=== PATIENT | male | born 1965 | race Caucasian/White ===

== ENCOUNTER 2017-11-22 13:47 | Emergency (ER) | payer BC ==
[2017-11-22 14:04] VITALS: TEMP 97.6
--- NOTE | 2017-11-22 14:20 | ED.PDOC ---
History of Present Illness - General Chief Complaint: Back Pain or Injury Stated Complaint: back pain Time Seen by Provider: 11/22/17 14:02 Source: patient Exam Limitations: no limitations - History of Present Illness Initial Comments: The patient is a 52-year-old male presenting to the emergency room secondary to pain in his low back with radiation down his left leg to his foot. There is some tingling in the leg. There is no weakness. No rash. The patient has had this flare for about 3-4 days. He has had pain in the area before. He has had to have surgery before. No incontinence. No falls. No recent trauma. No urinary symptoms. No bowel symptoms. He has been applyingtopical ice and heat. He is a straight truck driver by living.passive range of motion of the hip does not seem to cause much problem. He does have low back pain with significant flexion at the hip. He also has lumbar back pain with inversion of the hip. Eversion and extension does not seem to cause much pain. Severity: moderate Improving Factors: nothing Worsening Factors: immobilization Associated Symptoms: denies symptoms Allergies/Adverse Reactions: Allergies NO KNOWN ALLERGY Allergy (Verified 11/22/17 14:05) Home Medications: Ambulatory Orders Cyclobenzaprine HCl [Flexeril] 10 mg PO Q8HR PRN #30 tab 11/22/17 predniSONE [Prednisone] 40 mg PO DAILY #10 tab 11/22/17 Review of Systems - Review of Systems Constitutional: States: no symptoms reported EENTM: States: no symptoms reported Respiratory: States: no symptoms reported Cardiology: States: no symptoms reported Gastrointestinal/Abdominal: States: no symptoms reported Genitourinary: States: no symptoms reported Musculoskeletal: States: see HPI Skin: States: no symptoms reported Neurological: States: see HPI Endocrine: States: no symptoms reported All other Systems: No Change from Baseline Past Medical History (General) - Patient Medical History Hx Asthma: No Hx Cardiac Disorders: No Hx Congestive Heart Failure: No Hx Hypertension: No Hx Diabetes: No Surgical History: other - Social History Hx Tobacco Use: No Hx Alcohol Use: No Hx Substance Use: No Hx Substance Use Treatment: No Hx Depression: No Family Medical History - Family History Mother Family History: Unknown Physical Exam - Physical Exam General Appearance: Alert, Comfortable, No apparent distress Eye Exam: bilateral normal Ears, Nose, Throat: hearing grossly normal Neck: supple Respiratory: no respiratory distress, no accessory muscle use Cardiovascular/Chest: normal peripheral pulses, no edema Peripheral Pulses: dorsalis pedis,right: 2+, dorsalis pedis,left: 2+ Gastrointestinal/Abdominal: non tender, soft Rectal Exam: deferred Back Exam: no vertebral tenderness, CVA tenderness (L) - adjacent toL4-S1 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 The patient will be placed on prednisone 40 mg each morning for the next 5 days and he will will be written for Flexeril as a muscle relaxer for the next 5 days as well for as needed use. A heat pad over the area may help. Stretches may help. He should follow-up with his primary care doctor towards the end of the week for reevaluation. ER warnings were given. long-term exercises such as swimming, rowing and bicycling may help to reduce his low back symptoms. Weight loss will also help reduce stress on the low back. Departure - Departure Clinical Impression: Low back pain with sciatica Qualifiers: Chronicity: acute Back pain laterality: left Sciatica laterality: sciatica of left side Qualified Code(s): M54.42 - Lumbago with sciatica, left side Disposition: Discharge to Home or Self Care Condition: Fair Departure Forms: ED Discharge - Pt. Copy, Patient Portal Self Enrollment Instructions: DI for Back Pain With Sciatica Diet: regular diet Activity: increase activity as tolerated Referrals: José Hong MD [Primary Care Provider] - 1-5 Days Prescriptions: Cyclobenzaprine HCl [Flexeril] 10 mg PO Q8HR PRN #30 tab PRN Reason: Muscle Spasms predniSONE [Prednisone] 40 mg PO DAILY #10 tab Home Medications: Ambulatory Orders Cyclobenzaprine HCl [Flexeril] 10 mg PO Q8HR PRN #30 tab 11/22/17 predniSONE [Prednisone] 40 mg PO DAILY #10 tab 11/22/17 Additional Instructions: the patient is a 52-year-old male presenting with low back pain on the left with associated sciatica. The patient will be placed on prednisone 40 mg each morning for the next 5 days and he will will be written for Flexeril as a muscle relaxer for the next 5 days as well for as needed use. A heat pad over the area may help. Stretches may help. He should follow-up with his primary care doctor towards the end of the week for reevaluation. ER warnings were given. long-term exercises such as swimming, rowing and bicycling may help to reduce his low back symptoms. Weight loss will also help reduce stress on the low back.
[2017-11-22 14:33] VITALS: BP 155/102; O2SAT 94
== END 2017-11-22 14:33 | disposition home or self-care (01) ==
LOC: ER 13:47
DX: M54.42 Lumbago with sciatica, left side (principal)

== ENCOUNTER → 2017-11-25 | Outpatient (CLI) | payer BC, OTHER ==
--- NOTE | 2017-11-25 15:28 | MRI ---
EXAM DESCRIPTION: Lumbar Spine w/o Contrast MRI. CLINICAL HISTORY: LUMBOSACRAL RADICULOPATHY COMPARISON: LUMBAR TECHNIQUE: Multiplanar, multiple standard sequences, non contrast MRI, lumbar spine. FINDINGS: L5-S1: Disc desiccation and minimal disc space loss. Posterior posterior midline 4 mm disc bulge abutting the right descending S1 nerve and the thecal sac. Larger 5-6 mm protrusion of the disc to the left of midline displacing the descending left C6 nerve posteriorly. Left paracentral mild canal stenosis. Mild left foraminal narrowing with disc spur complex causing borderline right foraminal stenosis. Minimal facet arthrosis bilaterally. L4-5: Disc desiccation with disc space preserved. Schmorl's node posterior superior L5 endplate. Modic type II endplate reactive changes on the right side of the endplate. Schmorl's node left inferior L4 endplate. Right posterior 6 mm disc protrusion with minimal inferior migration impressing on the right ventral thecal sac and the descending right L5 nerve above the lateral recess. Right paracentral canal stenosis. Minimal facet arthrosis and ligament hypertrophy. Mild bilateral foraminal narrowing. L3-4: Normal signal in the disc and disc space. No disc bulging. Minimal narrowing of the transverse canal and subarticular recesses narrowing. Bilateral foramina are patent. L2-3: Normal signal in the disc with disc space preserved and no disc bulging. Narrowing transverse canal and bilateral subarticular recesses. Bilateral foramina are patent. L1-2: Normal signal in the disc and disc space unremarkable with no disc bulging. Narrowing of the transverse canal and minimal subarticular recess flattening. Minimal ligament hypertrophy. Bilateral foramina are patent. Normal T12-L1 disc and disc space. Canal and foramina are patent. Conus terminates at this level. Paravertebral soft tissues unremarkable. Normal marrow signal in the remaining vertebral bodies and the posterior elements. Vertebral bodies are not compressed at any level. IMPRESSION: 1. Left posterior protrusion of the L5-S1 disc impinging the descending left S1 nerve root with left paracentral canal stenosis. Minimal facet arthrosis. Borderline stenosis right foramen. 2. Right posterior protrusion of the L4-5 disc impinging the descending right L5 nerve root with right paracentral canal stenosis. Bilateral foraminal narrowing. Also endplate Schmorl's nodes and moderate spondylosis. Electronically signed by: Mak Cui MD 11/25/2017 3:27 PM [employer]
== END ==
LOC: MRI 14:30
PROVIDERS: ATTEND Family Medicine
DX: M51.16 Intervertebral disc disorders with radiculopathy, lumbar region (principal)

== ENCOUNTER → 2020-11-08 | Outpatient (CLI) | payer SELFPAY | LOC: GMAM 12:44 | PROVIDERS: ATTEND Family Medicine | DX: Z12.5 Encounter for screening for malignant neoplasm of prostate (principal); R53.83 Other fatigue; I10 Essential (primary) hypertension ==